=== PATIENT | female | born 1990 | race Two or more races ===

== ENCOUNTER 2021-10-31 00:03 | Emergency (ER) | payer OTHER ==
[~2021-10-31] VITALS: Ht 172.7 cm; Wt 68.0 kg
[2021-10-31] MEDS ORDERED: CEPHALEXIN500 MG PO (03:07)
[2021-10-31] MEDS ORDERED: MUPIROCIN1 G1 TOP (03:07)
== END 2021-10-31 03:14 ==
LOC: ER 00:03
DX: L60.0 Ingrowing nail (principal)

== ENCOUNTER 2022-05-05 14:49 | Emergency (ER) | payer OTHER ==
[~2022-05-05] VITALS: Ht 172.7 cm; Wt 67.6 kg
[~2022-05-05 14:49] MED LIST: CEPHALEXIN500 MG PO; MUPIROCIN1 G1 TOP
== END 2022-05-05 19:42 | disposition home or self-care (01) ==
LOC: ER 14:49
DX: R00.2 Palpitations (principal)